=== PATIENT | male | born 2000 | race Caucasian/White ===

== ENCOUNTER 2019-06-16 21:19 | Emergency (ER) | payer BC, SELFPAY ==
[2019-06-16 21:21] VITALS: BP 128/77; PULSE 82; RESP 18; TEMP 37.1; O2SAT 98; BMI 25.8
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
[2019-06-16] MEDS: Azithromycin 250 MG Tablet 1000 MG PO (23:53)
[2019-06-16] MEDS: EMTRICITABINE/TENOFOVIR 1 TABLET TABLET PO (23:53)
[2019-06-17 00:03] LABS: HIV - WCH Non-Reactive (Nonreactive)
[2019-06-17] MEDS: Ceftriaxone 500 MG Vial 250 MG IM (00:15)
[2019-06-17 00:45] LABS: Chlamydia Trachomatis by PCR Negative (Negative); Neisserai gonorrhoeae by PCR Negative (Negative); Probe Check PASS; Sample Adequacy Control PASS; Specimen Processing Control PASS
== END 2019-06-17 00:19 | disposition home or self-care (01) ==
PROVIDERS: Emergency Provider Emergency Medicine; Family Provider Family Medicine; PCP Family Medicine
DX: Z20.2 Contact with and (suspected) exposure to infections with a predominantly sexual mode of transmission (principal)
CPT/HCPCS: 86703; 87491; 87591; 96372; 99282

== ENCOUNTER 2019-08-13 18:21 | Emergency (ER) | payer BC, SELFPAY ==
[2019-08-13 18:23] VITALS: BP 136/78; PULSE 91; RESP 16; TEMP 36.6; O2SAT 99; BMI 23.5
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
[2019-08-13 20:31] LABS: HIV - WCH Non-Reactive (Nonreactive)
[2019-08-13 20:59] LABS: Chlamydia Trachomatis by PCR Negative (Negative); Neisserai gonorrhoeae by PCR Negative (Negative); Probe Check PASS; Sample Adequacy Control PASS; Specimen Processing Control PASS
== END 2019-08-13 19:51 | disposition home or self-care (01) ==
PROVIDERS: Emergency Provider Emergency Medicine; Family Provider Family Medicine; PCP Family Medicine
DX: Z20.2 Contact with and (suspected) exposure to infections with a predominantly sexual mode of transmission (principal)
CPT/HCPCS: 86703; 87491; 87591; 99282